=== PATIENT | female | born 1945 | race American Indian/Alaskan Native ===

== ENCOUNTER 2018-11-24 08:26 | Emergency (ER) | payer MEDICARE ==
--- NOTE | 2018-11-24 09:07 | Emergency Department Report ---
ED Lower Extremity HPI - General Chief Complaint: Extremity Injury, Lower Stated Complaint: PAIN/SWELLING LEG Time Seen by Provider: 11/24/18 08:59 Source: patient Mode of arrival: Wheelchair Limitations: No Limitations - History of Present Illness Initial Comments: Mrs. Wesley is a 72 yo female without known medical hx who presents with leg pain after trauma one week ago. Last week , Mrs. Wesley struck her knee on furniture during fall. She has moderately severe right knee pain. She has severe leg swelling from groin to ankle. She is not able to give a timeframe for this occurrence. She is a poor historian. She does not have a PCP. She has been treated at [facility]. She has moved to [facility] in order to live with her son. Complaint: knee injury -: week(s) (1) Injury: Knee: Right Type of Injury: blunt Place: home Severity: mild Improves With: nothing Worsens With: weight bearing, movement, palpation Context: fall, direct blow Other Symptoms: other (severe leg swelling) - Related Data Previous Rx's Medication Instructions Recorded Last Taken Type traMADol [Ultram 50 MG tab] 50 mg PO Q6HR PRN #20 tablet 11/24/18 Unknown Rx Allergies Allergy/AdvReac Type Severity Reaction Status Date / Time No Known Allergies Allergy Unverified 11/24/18 08:34 ED Review of Systems ROS: Stated complaint: PAIN/SWELLING LEG Other details as noted in HPI Comment: All other systems reviewed and negative Constitutional: denies: fever, malaise Respiratory: denies: shortness of breath Cardiovascular: denies: chest pain ED Past Medical Hx - Past Medical History Previous Medical History?: No - Surgical History Past Surgical History?: No - Social History Smoking Status: Never Smoker Substance Use Type: None - Medications Home Medications: Home Medications Medication Instructions Recorded Confirmed Last Taken Type traMADol [Ultram 50 MG tab] 50 mg PO Q6HR PRN #20 tablet 11/24/18 Unknown Rx ED Physical Exam - General Limitations: No Limitations General appearance: alert, in no apparent distress - Head Head exam: Present: atraumatic, normocephalic - Eye Eye exam: Present: normal appearance - ENT ENT exam: Present: mucous membranes moist - Neck Neck exam: Present: normal inspection, full ROM - Respiratory Respiratory exam: Present: normal lung sounds bilaterally. Absent: respiratory distress - Cardiovascular Cardiovascular Exam: Present: regular rate, normal rhythm, normal heart sounds. Absent: systolic murmur, diastolic murmur, rubs, gallop - GI/Abdominal GI/Abdominal exam: Present: soft, normal bowel sounds - Extremities Exam Extremities exam: Present: pedal edema, other (right knee full range of motion no bruise or ecchymosis or laceration) - Neurological Exam Neurological exam: Present: alert, oriented X3 - Psychiatric Psychiatric exam: Present: normal affect, normal mood - Skin Skin exam: Present: warm, dry, intact, normal color. Absent: rash - Other Other exam information: Extensive right lower extremity swelling from the groin to the foot there is venous stasis changes with patches of hypopigmentation and hyperpigmentation ED Course Vital Signs 11/24/18 08:37 Temperature 97.9 F Pulse Rate 83 Respiratory 18 Rate Blood Pressure 136/81 O2 Sat by Pulse 100 Oximetry ED Lower Extremity MDM - Lab Data Result diagrams: 11/24/18 09:04 11/24/18 09:04 - Radiology Data Radiology results: report reviewed two fractures of the proximal tibia extending into the tibial plateau nondisplaced - Medical Decision Making 1. right knee pain after blunt trauma, tibial fractures according to CT scan and CT obtained after abnormal x-ray obtained. Place a knee immobilizer given crutches for walking assistance referred to orthopedic surgeon. Prescribed tramadol. 2. Extensive right lower extremity swelling: Suggestive lymphedema, appears to be chronic in nature, duplex study negative for DVT 3. Mrs. Wesley will need primary care outpatient setting After stabilization of orthopedic process. Knee immobilizer was applied to the right lower extremity extremity under my supervision. After application the extremity was neurovascularly intact with acceptable alignment. Critical care attestation.: If time is entered above; I have spent that time in minutes in the direct care of this critically ill patient, excluding procedure time. ED Disposition Clinical Impression: Lymphedema of right lower extremity, Tibial plateau fracture, right Disposition: - TO HOME OR SELFCARE Is pt being admited?: No Does the pt Need Aspirin: No Condition: Stable Instructions: Leg Fracture (ED) Prescriptions: traMADol [Ultram 50 MG tab] 50 mg PO Q6HR PRN #20 tablet PRN Reason: Pain Referrals: TIEN POSEY MD [Staff Physician] - 3-5 Days
[2018-11-24 09:16] LABS: Basophils # (Auto) 0.1 K/mm3 (0.0-0.1); Basophils % (Auto) 0.9 % (0.0-1.8); Eosinophils # (Auto) 0.1 K/mm3 (0.0-0.4); Eosinophils % (Auto) 1.9 % (0.0-4.3); Hematocrit 35.9 % (30.3-42.9); Lymphocytes # (Auto) 1.2 K/mm3 (1.2-5.4); Lymphocytes % (Auto) 16.3 % (13.4-35.0); Mean Corpuscular HGB Conc 34 % (30-34); Mean Corpuscular Volume 90 fl (79-97); Monocytes # (Auto) 0.7 K/mm3 (0.0-0.8); Monocytes % (Auto) 10.4 % (0.0-7.3); Platelet Count 238 K/mm3 (140-440); Red Cell Distribution Width 14.9 % (13.2-15.2)
[2018-11-24 09:33] LABS: Alanine Aminotransferase 9 units/L (7-56); Albumin 4.2 g/dL (3.9-5); BUN/Creatinine Ratio 23; Blood Urea Nitrogen 16 mg/dL (7-17); Calcium 9.6 mg/dL (8.4-10.2); Hemolysis Index 5
--- NOTE | 2018-11-24 09:58 | XRay Report ---
RIGHT KNEE 3 VIEWS INDICATION / CLINICAL INFORMATION: knee trauma. COMPARISON: None available. FINDINGS: Subtle lucency is seen in the lateral tibial plateau in the metaphyseal region. No other significant skeletal abnormality is seen. If clinically indicated, CT of the knee may be helpful for further eval uation. Signer Name: Dada Zhao MD FACAnnemarie Signed: 11/24/2018 9:53 AM Workstation Name: [id number]
--- NOTE | 2018-11-24 10:30 | Vascular Lab Report ---
DUPLEX DOPPLER LOWER EXTREMITY VEINS, RIGHT INDICATION / CLINICAL INFORMATION: leg swelling. TECHNIQUE: Duplex doppler imaging was performed through the veins of the right lower extremity using venous comp ression and other maneuvers. COMPARISON: None available. FINDINGS: COMMON FEMORAL VEIN: Negative. FEMORAL VEIN: Negative. POPLITEAL VEIN: Negative. CALF VEINS: Negative. ADDITIONAL FINDINGS: Subcutaneous edema right leg IMPRESSION: 1. No sonographic evidence for DVT in the right lower extremity. Signer Name: Anastacio Oquendo MD Signed: 11/24/2018 10:26 AM Workstation Name: [id number]
--- NOTE | 2018-11-24 13:02 | Cat Scan Report ---
CT RIGHT KNEE WITHOUT CONTRAST INDICATION / CLINICAL INFORMATION: knee fracture, tibial plateau. TECHNIQUE: Axial CT images were obtained of the right knee with coronal and sagittal 2-D reconstruction. All CT scans at this location are performed using CT dose reduction for ALARA by means of automated exposure control. COMPARISON: Radiographs earlier in the day. FINDINGS: There is a virtually nondisplaced fracture of the proximal tibia. There is an oblique fracture line e xtending from the medial tibial spine to the anterior tibia just lateral to the tibial tubercle best seen on coronal image 32. There is also a virtually nondisplaced fracture line extending through the base of the medial tibial plateau and exiting the medial tibial metadiaphysis. There is no significan t gap or step-off of the proximal tibial articular surface. No other fracture identified. There is mild tricompartment degenerative arthrosis. There is a small j oint effusion with tiny popliteal cyst. There is moderate circumferential subcutaneous soft tissue edema. Patient is subjectively osteopenic. IMPRESSION: 1. Virtually nondisplaced fractures of the proximal right tibia with extension to the proximal latera l and proximal medial tibial metadiaphyses. 2. Subjective osteopenia. Signer Name: Prabhjot Abraham MD Signed: 11/24/2018 12:58 PM Workstation Name: [id number]
[2018-11-24] MEDS ORDERED: ULTRAM PO ONE (13:49)
[2018-11-24 14:19] VITALS: BP 131/78
== END 2018-11-24 14:18 | disposition home or self-care (01) ==
LOC: ED 08:26
DX: S82.141A Displaced bicondylar fracture of right tibia, initial encounter for closed fracture (principal); I89.0 Lymphedema, not elsewhere classified; Z79.899 Other long term (current) drug therapy; W01.190A Fall on same level from slipping, tripping and stumbling with subsequent striking against furniture, initial encounter; Y93.89 Activity, other specified; Y92.009 Unspecified place in unspecified non-institutional (private) residence as the place of occurrence of the external cause; Y99.8 Other external cause status
CPT/HCPCS: 36415; 80053; 85025